=== PATIENT | female | born 1960 | race Two or more races ===

== ENCOUNTER 2017-03-07 15:07 | Emergency (ER) | payer OTHER ==
[~2017-03-07] VITALS: Ht 157.5 cm; Wt 103.0 kg
[~2017-03-07 15:07] MED LIST: ASPI-498 PO; CAR125T PO; CINA60TA PO; LEV100T PO; OMEP20CA74 PO; PRAV20TA3 PO
[2017-03-07 16:21] LABS: Basophils # (auto) 0 uL; Eosinophils # (auto) 0.2 uL; Hematocrit 40.4 % (36.0-46.0); Hemoglobin 13.3 g/dL (12.2-16.2); Lymphocytes # (auto) 0.9 uL; Mean Corpuscular Hgb Conc. 32.8 g/dL (32.0-36.0); Monocytes # (auto) 0.5 uL; Monocytes % (auto) 5.6 % (0.0-12.0)
[2017-03-07 16:23] LABS: Basophils % (auto) 0.5 % (0.0-2.0); Eosinophils % (auto) 2.1 % (0.0-7.0); Lymphocytes % (auto) 9.9 % (10.0-50.0); Mean Corpuscular Hemoglobin 33.8 pg (28.0-32.0); Mean Corpuscular Volume 103.2 fL (80.0-100.0); Mean Platelet Volume 8.6 fL (6.9-10.8); Neutrophils # (auto) 7.4 uL; Neutrophils % (auto) 81.9 % (37.0-80.0); Platelet Count (auto) 218 10^3/uL (140-450); White Blood Cell 9.1 10^3/uL (4.4-10.8)
[2017-03-07 16:34] LABS: Albumin 3.3 g/dL (3.4-5.0); Anion Gap 10 (5-15); Aspartate Aminotransferase 12 U/L (15-37); BUN/Creatinine Ratio 4.6; Blood Urea Nitrogen 35 mg/dL (7-18); Calcium 9.2 mg/dL (8.5-10.1); Carbon Dioxide 31 mmol/L (21-32); Chloride 96 mmol/L (98-107); GFR African American 7 mL/min; GFR Non-African American 6 mL/min; Glucose 198 mg/dL (74-106); Sodium 137 mmol/L (136-145)
[2017-03-07 16:39] LABS: Alkaline Phosphatase 170 U/L (45-117); Bilirubin, Total 0.4 mg/dL (0.2-1.0); Total Protein 7.5 g/dL (6.4-8.2)
[2017-03-07 22:16] VITALS: BP 139/72
== END 2017-03-07 22:32 | disposition home or self-care (01) ==
LOC: EDBD 15:07 → ER 15:13
DX: S06.0X0A Concussion without loss of consciousness, initial encounter (principal); I13.2 Hypertensive heart and chronic kidney disease with heart failure and with stage 5 chronic kidney disease, or end stage renal disease; N18.6 End stage renal disease; I50.9 Heart failure, unspecified; E11.22 Type 2 diabetes mellitus with diabetic chronic kidney disease; Z88.6 Allergy status to analgesic agent; Z79.899 Other long term (current) drug therapy; Z79.82 Long term (current) use of aspirin; Z99.2 Dependence on renal dialysis; V43.62XA Car passenger injured in collision with other type car in traffic accident, initial encounter; Y93.89 Activity, other specified; Y92.89 Other specified places as the place of occurrence of the external cause; Y99.8 Other external cause status
CPT/HCPCS: 36415; 70450; 80053; 84484; 85025; 93005